=== PATIENT | female | born 1970 | race Caucasian/White ===

== ENCOUNTER 2016-09-10 08:50 | Emergency (ER) | payer OTHER ==
[~2016-09-10 08:50] MED LIST: ALBUTEROL IN200 PUFF INH; HYDROCODON-ACE1 EAC6 PO; KEFLEX500 MG PO; LEVAQUIN500 MG PO; OMEPRAZOLE40 MG PO; PREDNISONE5 MG PO; SPIRIVA18 MCG INH; SYMBICORT 16060 PUFF INH; ZESTRIL5 MG PO
[2016-09-10 09:20] LABS: BASO % 0.2 % (0.1-1.2); EOS % 0.1 % (0.7-5.8); GRAN # 15.8 10_X3_uL (1.6-6.1); GRAN % 80.2 % (34.0-71.1); HEMATOCRIT 39.7 % (34-45); HEMOGLOBIN 12.7 g/dL (11.2-15.7); LYMPH # 1.5 10_X3_uL (1.2-3.7); LYMPH % 7.3 % (19.3-51.7); MEAN CORPUSCULAR HEMOGLOBIN 31.1 pg (27.0-33.0); MEAN CORPUSCULAR VOLUME 97.1 fL (79-95); MEAN PLATELET VOLUME 9.3 fl (7.5-11.5); MONO # 2.4 10_X3_uL (0.2-0.9); MONO % 12.2 % (4.7-12.5); PLATELET COUNT 535 x10_3/uL (182-369); RED BLOOD COUNT 4.09 x10_6/uL (3.9-5.2); RED CELL DISTRIBUTION WIDTH 15.2 % (11.7-14.4); WHITE BLOOD COUNT 19.7 x10_3/uL (4.0-10.0)
[2016-09-10 09:27] LABS: ALBUMIN 3.6 gm/dL (3.4-5.0); ALKALINE PHOSPHATASE 72 U/L (50-136); ALT/SGPT 18 U/L (3.5-33.9); AST/SGOT 19 U/L (7.04-26.96); BLOOD UREA NITROGEN 7 mg/dL (7-18); CARBON DIOXIDE 26 mmol/L (21-32); CREATINE KINASE 183 U/L (21-215); CREATININE < 0.5 mg/dL (0.6-1.3); GLUCOSE,RANDOM 104 mg/dL (70-99); POTASSIUM 4.5 mmol/L (3.5-5.1); SODIUM 139 mmol/L (136-145); TOTAL PROTEIN 7.5 gm/dL (6.4-8.2)
[2016-09-10 09:28] LABS: BILIRUBIN,TOTAL < 0.15 mg/dL (0.0-1.0)
[2016-09-10 09:36] LABS: ARTERIAL BLD GAS O2 SATURATION 88.5 % (94-98); ARTERIAL BLOOD GAS BASE EXCESS 3.3 mmol/L (-2.0-3.0); ARTERIAL BLOOD GAS HCO3 29.7 mmol/L (22-26); ARTERIAL BLOOD GAS PCO2 56.3 mmHg (32-45); ARTERIAL BLOOD GAS pH 7.34 (7.35-7.45)
[2016-09-10 14:01] LABS: ARTERIAL BLD GAS O2 SATURATION 97.6 % (94-98); ARTERIAL BLOOD GAS BASE EXCESS 0.5 mmol/L (-2.0-3.0); ARTERIAL BLOOD GAS PCO2 62.7 mmHg (32-45); ARTERIAL BLOOD GAS pH 7.27 (7.35-7.45)
[2016-09-10 16:43] LABS: ARTERIAL BLD GAS O2 SATURATION 96.9 % (94-98); ARTERIAL BLOOD GAS HCO3 30.6 mmol/L (22-26); ARTERIAL BLOOD GAS PCO2 66.4 mmHg (32-45); ARTERIAL BLOOD GAS pH 7.29 (7.35-7.45)
== END 2016-09-10 19:25 | disposition short-term general hospital (02) ==
LOC: ER 08:50
PROVIDERS: Emergency Medicine
DX: J44.0 Chronic obstructive pulmonary disease with (acute) lower respiratory infection (principal); J18.9 Pneumonia, unspecified organism; J44.1 Chronic obstructive pulmonary disease with (acute) exacerbation; Z86.73 Personal history of transient ischemic attack (TIA), and cerebral infarction without residual deficits; Z90.710 Acquired absence of both cervix and uterus; F17.210 Nicotine dependence, cigarettes, uncomplicated; R07.9 Chest pain, unspecified; Z79.899 Other long term (current) drug therapy
CPT/HCPCS: 36415; 36600; 70450; 71010; 71250; 80053; 82550; 82553; 82803; 83605; 85025; 86738; 87040; 87070; 87205; 87400; 87449; 93005; 94660; 94664; 96365; 96366; 96367; 96375; 99070; 99285-25